=== PATIENT | female | born 1985 | race African-American/Black ===

== ENCOUNTER 2017-09-29 17:21 | Emergency (ER) | payer BC ==
[2017-09-29] MEDS ORDERED: diphenhydrAMINE 50 MG/ML VIAL ONE (17:26)
[2017-09-29] MEDS ORDERED: methylPREDNISolone Sod Succ/PF 125 MG/2 ML VIAL ONE (17:26)
== END 2017-09-29 19:18 | disposition home or self-care (01) ==
LOC: BURERS 17:21
DX: T63.461A Toxic effect of venom of wasps, accidental (unintentional), initial encounter (principal)
CPT/HCPCS: 96374; 96375; J1200; J2930